=== PATIENT | male | born 1965 | race Caucasian/White ===

== ENCOUNTER 2017-10-01 07:07 | Emergency (ER) | payer OTHER ==
[~2017-10-01] VITALS: Ht 177.8 cm; Wt 88.0 kg
[~2017-10-01 07:07] MED LIST: GLIP10 PO; GLIPIZIDE; GLUCOPHAGE; INSULANPEN SC; LISI20 PO; LISINOPRIL; METF500 PO; PARO20 PO; Prednisone20 MG PO; RXTRAM50 PO; TRAM50 PO; TRAZ100 PO; TRAZADONE
[2017-10-01] MEDS ORDERED: BUSP15 PO (07:47)
[2017-10-01] MEDS ORDERED: IBUP800 PO (07:49)
[2017-10-01] MEDS ORDERED: SERT100 PO (07:50)
[2018-05-20] MEDS ORDERED: LISI20 PO (08:12)
[2018-05-20] MEDS ORDERED: INSULANPEN SC (08:13)
[2018-05-20] MEDS ORDERED: METF500C PO (08:14)
[2018-05-20] MEDS ORDERED: GLIP5 PO (08:15)
[2018-05-20] MEDS ORDERED: IBUP800 PO (08:16)
[2018-05-20] MEDS ORDERED: SERT100 PO (08:17)
[2018-05-20] MEDS ORDERED: ALBU90OI61 INH (08:17)
[2018-05-20] MEDS ORDERED: BUSP15 PO (08:18)
== END 2017-10-01 09:31 | disposition home or self-care (01) ==
LOC: ER 07:07
DX: S46.001A Unspecified injury of muscle(s) and tendon(s) of the rotator cuff of right shoulder, initial encounter (principal); Z79.899 Other long term (current) drug therapy; Z79.84 Long term (current) use of oral hypoglycemic drugs; Z79.4 Long term (current) use of insulin; F41.9 Anxiety disorder, unspecified; E11.9 Type 2 diabetes mellitus without complications; F17.210 Nicotine dependence, cigarettes, uncomplicated; X58.XXXA Exposure to other specified factors, initial encounter
CPT/HCPCS: 99282

== ENCOUNTER 2022-09-19 14:34 | Emergency (ER) | payer OTHER ==
[~2022-09-19] VITALS: Ht 175.3 cm; Wt 104.8 kg
[~2022-09-19 14:34] MED LIST changes: +ALBU90OI61 INH; +BUSP15 PO; +GLIP5 PO; +IBUP800 PO; +METF500C PO; +SERT100 PO
[2022-09-19] MEDS ORDERED: HYDHCL25 PO (14:57)
[2022-09-22] MEDS ORDERED: ALOGLIPTIN25 M7 PO (07:20)
[2022-09-22] MEDS ORDERED: INSULIN LI100 UNIT/6 SC (07:21)
[2022-09-22] MEDS ORDERED: INSULIN GL100 UNIT/2 SC (07:22)
[2022-09-22] MEDS ORDERED: LOSARTAN POTASS25 M2 PO (07:22)
[2022-09-22] MEDS ORDERED: ATOR40TA PO (07:22)
[2022-09-22] MEDS ORDERED: GLIP10ER PO (07:23)
[2022-09-22] MEDS ORDERED: Buspirone HCl15 MG PO (07:23)
[2022-09-22] MEDS ORDERED: ZOLOFT10013 PO (07:23)
[2022-09-22] MEDS ORDERED: ASPIR 8181 M1 PO (07:23)
== END 2022-09-19 15:50 | disposition home or self-care (01) ==
LOC: ER 14:34
DX: F22 Delusional disorders (principal); F15.10 Other stimulant abuse, uncomplicated; F41.9 Anxiety disorder, unspecified; Z88.0 Allergy status to penicillin; E11.9 Type 2 diabetes mellitus without complications; I10 Essential (primary) hypertension; F17.210 Nicotine dependence, cigarettes, uncomplicated
CPT/HCPCS: 99283; A9270

== ENCOUNTER 2023-03-18 14:49 | Emergency (ER) | payer OTHER ==
[~2023-03-18] VITALS: Ht 175.3 cm; Wt 98.0 kg
[~2023-03-18 14:49] MED LIST changes: +ALOGLIPTIN25 M7 PO; +ASPIR 8181 M1 PO; +ATOR40TA PO; +Buspirone HCl15 MG PO; +GLIP10ER PO; +HYDHCL25 PO; +INSULIN GL100 UNIT/2 SC; +INSULIN LI100 UNIT/6 SC; +LOSARTAN POTASS25 M2 PO; +ZOLOFT10013 PO
[2023-03-18 15:23] LABS: BASOPHILS ABSOLUTE AUTO 0.07 K/mm3 (0.00-0.23); BASOPHILS PERCENT AUTO 1 % (0-2); EOSINOPHILS PERCENT AUTO 1 % (0-6); Hematocrit 45.3 % (37.0-53.0); Hemoglobin 16.5 g/dL (13.5-17.5); IMMATURE GRAN ABSOLUTE AUTO 0.24 K/mm3 (0.00-0.10); IMMATURE GRAN PERCENT AUTO 2 % (0-1); LYMPHOCYTES PERCENT AUTO 12 % (21-46); MONOCYTES ABSOLUTE AUTO 1.32 K/mm3 (0.16-1.47); MONOCYTES PERCENT AUTO 10 % (4-13); Mean Corpuscular HGB 33.1 pg (26.0-34.0); Mean Corpuscular HGB Conc 36.4 g/dL (31.5-36.5); Mean Corpuscular Volume 91 fL (80-100); Mean Platelet Volume 10.8 fL (9.1-12.4); NEUTROPHILS ABSOLUTE AUTO 9.58 K/mm3 (1.96-9.15); NEUTROPHILS PERCENT AUTO 74 % (41-73); Platelet Count 200 K/mm3 (150-400); RDW Coefficient Variation 13.2 % (11.7-14.2); RDW Standard Deviation 44.5 fL (35.1-46.3); Red Blood Cell Count 4.99 M/mm3 (4.30-5.90); White Blood Cell Count 12.91 K/mm3 (4.00-11.30)
[2023-03-18 15:43] LABS: Albumin, Blood 2.5 g/dL (3.4-5.0); Albumin/Globulin Ratio 0.6 (0.8-1.8); Bilirubin, Total 0.7 mg/dL (0.1-1.0); Bun/Creatinine Ratio 16.1 (12.0-20.0); Calcium, Blood 8.7 mg/dL (8.5-10.1); Creatinine, Blood 0.75 mg/dL (0.60-1.20); Globulin, Blood 4.2 g/dL (2.2-4.0); Potassium, Blood 2.9 mmol/L (3.5-5.5); Total Protein, Blood 6.7 g/dL (6.4-8.2)
[2023-03-18 16:48] LABS: Magnesium, Blood 1.9 mg/dL (1.6-2.4)
[2023-03-18 16:50] LABS: Ethanol (Alcohol), Blood, Med <3 mg/dL
[2023-03-18 18:13] LABS: U Amphetamine Screen Not Detected; U Barbituate Screen Not Detected; U Benzodiazapine Screen Not Detected; U Buprenorphine Screen Not Detected; U Cannabinoids Screen DETECTED; U Cocaine Screen Not Detected; U Methadone Screen Not Detected; U Methamphetamine Screen Not Detected; U Opiates Screen Not Detected; U Oxycodone Screen Not Detected; U Phencyclidine Screen Not Detected; U Propoxyphene Screen Not Detected
[2023-03-18 19:00] VITALS: BP 131/74
[2023-03-18] MEDS ORDERED: Glucotrol Xl10 MG PO (19:20)
[2023-03-18] MEDS ORDERED: Pepcid40 MG PO (19:20)
[2023-03-18] MEDS ORDERED: PROM25 PO (19:20)
[2023-03-18] MEDS ORDERED: K-Dur20 MEQ PO (19:20)
[2023-03-18] MEDS ORDERED: Neurontin 300300 MG PO (19:20)
== END 2023-03-18 20:15 | disposition home or self-care (01) ==
LOC: ER 14:49
PROVIDERS: Emergency Medicine; Student in an Organized Health Care Education/Training Program
DX: K85.20 Alcohol induced acute pancreatitis without necrosis or infection (principal); R07.89 Other chest pain; F10.90 Alcohol use, unspecified, uncomplicated; E11.65 Type 2 diabetes mellitus with hyperglycemia; E87.6 Hypokalemia; Z79.899 Other long term (current) drug therapy; Z79.4 Long term (current) use of insulin; Z79.82 Long term (current) use of aspirin; E11.9 Type 2 diabetes mellitus without complications; I10 Essential (primary) hypertension; F17.210 Nicotine dependence, cigarettes, uncomplicated
CPT/HCPCS: 71046; 80053; 83690; 83735; 83880; 84484; 85025; 93005; 93010; 96365; 96375; 99284-25; A9270; G0480; J1200; J2765; J3475; J7030

== ENCOUNTER → 2023-08-17 | Outpatient (CLI) | payer OTHER ==
[~2023-08-17] MED LIST changes: +Glucotrol Xl10 MG PO; +K-Dur20 MEQ PO; +Neurontin 300300 MG PO; +PROM25 PO; +Pepcid40 MG PO
[2023-08-17 17:33] LABS: BASOPHILS ABSOLUTE AUTO 0.04 K/mm3 (0.00-0.23); BASOPHILS PERCENT AUTO 1 % (0-2); EOSINOPHILS ABSOLUTE AUTO 0.12 K/mm3 (0.00-0.68); EOSINOPHILS PERCENT AUTO 2 % (0-6); Hematocrit 45.1 % (37.0-53.0); Hemoglobin 15.2 g/dL (13.5-17.5); IMMATURE GRAN ABSOLUTE AUTO 0.01 K/mm3 (0.00-0.10); IMMATURE GRAN PERCENT AUTO 0 % (0-1); LYMPHOCYTES ABSOLUTE AUTO 2.87 K/mm3 (0.84-5.20); LYMPHOCYTES PERCENT AUTO 38 % (21-46); MONOCYTES ABSOLUTE AUTO 0.52 K/mm3 (0.16-1.47); MONOCYTES PERCENT AUTO 7 % (4-13); Mean Corpuscular HGB 32.1 pg (26.0-34.0); Mean Corpuscular HGB Conc 33.7 g/dL (31.5-36.5); Mean Corpuscular Volume 95 fL (80-100); Mean Platelet Volume 10.4 fL (9.1-12.4); NEUTROPHILS ABSOLUTE AUTO 4.04 K/mm3 (1.96-9.15); NEUTROPHILS PERCENT AUTO 53 % (41-73); Platelet Count 220 K/mm3 (150-400); RDW Coefficient Variation 12.8 % (11.7-14.2); RDW Standard Deviation 45.4 fL (35.1-46.3); Red Blood Cell Count 4.74 M/mm3 (4.30-5.90)
[2023-08-17 17:45] LABS: Albumin, Blood 3.4 g/dL (3.4-5.0); Bilirubin, Total 0.4 mg/dL (0.1-1.0); Bun/Creatinine Ratio 15.4 (12.0-20.0); Creatinine, Blood 0.72 mg/dL (0.60-1.20); Globulin, Blood 3.3 g/dL (2.2-4.0); Potassium, Blood 3.8 mmol/L (3.5-5.5); Total Protein, Blood 6.7 g/dL (6.4-8.2)
== END ==
LOC: LAB SHORT 16:40
PROVIDERS: Nurse Practitioner Family
DX: M79.89 Other specified soft tissue disorders (principal)
CPT/HCPCS: 80053; 85025

== ENCOUNTER 2025-07-13 11:38 | Emergency (ER) | payer OTHER ==
[~2025-07-13] VITALS: Ht 177.8 cm; Wt 113.4 kg
[~2025-07-13 11:38] MED LIST changes: +ABILIFY MYCITE2 M2; +CEPH500; +CEPH500 PO; +CLIN150 PO; +Chantix1 MG PO; +DISU250; +GABA400 PO; +INSULIN AS100 UNIT/8; +XARELTO20 MG
[2025-07-13 12:38] LABS: BASOPHILS ABSOLUTE AUTO 0.04 K/mm3 (0.00-0.23); BASOPHILS PERCENT AUTO 1 % (0-2); EOSINOPHILS ABSOLUTE AUTO 0.05 K/mm3 (0.00-0.68); EOSINOPHILS PERCENT AUTO 1 % (0-6); Hematocrit 43.8 % (37.0-53.0); Hemoglobin 14.8 g/dL (13.5-17.5); IMMATURE GRAN ABSOLUTE AUTO 0.09 K/mm3 (0.00-0.10); IMMATURE GRAN PERCENT AUTO 1 % (0-1); LYMPHOCYTES ABSOLUTE AUTO 2.34 K/mm3 (0.84-5.20); LYMPHOCYTES PERCENT AUTO 28 % (21-46); MONOCYTES ABSOLUTE AUTO 0.73 K/mm3 (0.16-1.47); MONOCYTES PERCENT AUTO 9 % (4-13); Mean Corpuscular HGB Conc 33.8 g/dL (31.5-36.5); Mean Corpuscular Volume 95 fL (80-100); NEUTROPHILS ABSOLUTE AUTO 5.17 K/mm3 (1.96-9.15); NEUTROPHILS PERCENT AUTO 61 % (41-73); NRBC ABSOLUTE 0.00 K/mm3 (0.00-0.02); NRBC Auto 0.0 /100 WBC (0.0-0.2); Platelet Count 174 K/mm3 (150-400); RDW Coefficient Variation 13.2 % (11.7-14.2); RDW Standard Deviation 46.5 fL (35.1-46.3)
[2025-07-13 13:11] LABS: Alanine Aminotransfer (ALT/SGP 45.0 U/L (12-78); Albumin, Blood 3.9 g/dL (3.4-5.0); Albumin/Globulin Ratio 1.0 (0.8-1.8); Anion Gap 17.0 mmol/L (3-11); Aspartate Aminotrans (AST/SGOT 42.0 U/L (12-37); Bilirubin, Total 0.9 mg/dL (0.1-1.0); Blood Urea Nitrogen 19.0 mg/dL (8-24); CO2, Blood 18.0 mmol/L (21-32); Calcium, Blood 9.0 mg/dL (8.5-10.1); Chloride, Blood 106.0 mmol/L (98-108); Creatinine, Blood 0.97 mg/dL (0.60-1.20); Globulin, Blood 4.0 g/dL (2.2-4.0); Glucose, Blood 133.0 mg/dL (70-99); Potassium, Blood 4.1 mmol/L (3.5-5.5); Sodium, Blood 137.0 mmol/L (136-145); Total Protein, Blood 7.9 g/dL (6.4-8.2)
[2025-07-13] MEDS ORDERED: Pantoprazole Sodium 40 MG Injection IV ONE (14:00)
[2025-07-13] MEDS ORDERED: Atropine/Scopalam/Hyoscam/PB 5 ML UDC PO ONE (14:45)
[2025-07-13] MEDS ORDERED: Lidocaine 2% Viscous Soln 15 ML UDC PO ONE (14:50)
[2025-07-13] MEDS ORDERED: OMEP20ER PO (15:34)
[2025-07-13 16:16] VITALS: BP 145/90
== END 2025-07-13 16:15 | disposition home or self-care (01) ==
LOC: ER 11:38
PROVIDERS: Student in an Organized Health Care Education/Training Program
DX: K21.9 Gastro-esophageal reflux disease without esophagitis (principal); E11.9 Type 2 diabetes mellitus without complications; I10 Essential (primary) hypertension; F17.210 Nicotine dependence, cigarettes, uncomplicated; Z79.4 Long term (current) use of insulin; Z79.899 Other long term (current) drug therapy
CPT/HCPCS: 71046; 74177; 80053; 83690; 84484; 85025; 93005; 93010; 96374-59; 99284-25; A9270; J2470; Q9967